=== PATIENT | female | born 1995 | race Caucasian/White ===

== ENCOUNTER → 2024-10-30 | Outpatient (REF) | payer BC | LOC: M LAB REF 10:17 | PROVIDERS: ATTEND Physician Assistant Medical | DX: J02.9 Acute pharyngitis, unspecified (principal) ==

== ENCOUNTER → 2024-12-02 | Outpatient (CLI) | payer BC | LOC: M CARPUL 15:24 | PROVIDERS: ATTEND Physician Assistant | DX: R07.9 Chest pain, unspecified (principal) ==